=== PATIENT | male | born 1995 | race Asian ===

== ENCOUNTER 2017-02-05 21:55 | Emergency (ER) | payer OTHER ==
[~2017-02-05] VITALS: Ht 182.9 cm; Wt 109.1 kg
[~2017-02-05 21:55] MED LIST: NO HOME MEDICATIONS; NORCO 325 MG-51 TAB PO; ZOFRAN 4MG T4 MG/TAB PO; ZOFRAN ODT4 MG PO
[2017-02-05 21:58] VITALS: BP 160/79; TEMP 97.6
[2017-02-05 23:05] VITALS: PULSE 90
== END 2017-02-05 23:05 | disposition home or self-care (01) ==
LOC: COL.ER 21:55
DX: S92.131A Displaced fracture of posterior process of right talus, initial encounter for closed fracture (principal); X50.1XXA Overexertion from prolonged static or awkward postures, initial encounter; Y92.830 Public park as the place of occurrence of the external cause